=== PATIENT | male | born 1960 | race Hispanic/Latino ===

== ENCOUNTER → 2023-03-12 | Outpatient (CLI) | payer BC ==
[~2023-03-12] MED LIST: IOHEXOL 350 MG/ML 100ML INFUS..BTL IV ONE
== END | disposition home or self-care (01) ==
LOC: RAH 08:10
PROVIDERS: ATTEND Internal Medicine Cardiovascular Disease
DX: I71.40 Abdominal aortic aneurysm, without rupture, unspecified (principal); I71.019 Dissection of thoracic aorta, unspecified
CPT/HCPCS: 74174; Q9967

== ENCOUNTER → 2024-12-31 | Outpatient (CLI) | payer OTHER ==
--- NOTE | 2024-12-31 12:28 | HMCIMG ---
CT ANGIO CHEST/ABD/PELVIS REASON: Dissection of thoracic aorta, unspecified COMPARISON: 03/12/2023 TECHNIQUE: Axial images are obtained from thoracic inlet through the symphysis pubis before and during bolus IV contrast infusion. 2-D and 3-D multiplanar reconstruction images were performed. Contrast volume was 100 cc Omnipaque 350. FINDINGS: There is a stent graft in the descending thoracic aorta. The descending aorta just distal to the stent graft is dilated at 5.3 x 4.4 cm. There is a dissection flap which begins just below the stent graft, false lumen is initially thrombosed, the false lumen becomes patent at the level of the diaphragmatic hiatus. The dissection flap is visible extending into the common iliac artery. Both true and false lumens are widely patent to this level. Celiac and superior mesenteric artery origins are from the true lumen as are the renal artery origins. The extent of the dissection is unchanged compared to previous exam. 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 The descending aorta reaches normal caliber bilateral diaphragmatic hiatus. Lung bases are clear. There are no focal masses or infiltrates. There are no pleural effusions. There is mild cardiomegaly without vascular congestion. There is no hilar or mediastinal lymphadenopathy. There are no focal liver lesions. Spleen, kidneys, pancreas and gallbladder appear normal. Bowel loops appear unremarkable. There is no free air or fluid. There are no focal fluid collections. Pelvic soft tissues appear normal. The anterior abdominal wall is intact. Bones appear unremarkable. IMPRESSION: 1. Aortic stent graft in the proximal and mid descending aorta, unchanged. 2. 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 3. The dissection flap is visible to the level of the right distal common iliac artery, overall appearance and size of the aorta are unchanged compared to prior exam. 4. No acute finding in the chest, abdomen and pelvis.
== END | disposition home or self-care (01) ==
LOC: RAH 09:55
PROVIDERS: ATTEND Internal Medicine Cardiovascular Disease
DX: I71.23 Aneurysm of the descending thoracic aorta, without rupture (principal); I51.7 Cardiomegaly; I71.019 Dissection of thoracic aorta, unspecified
CPT/HCPCS: 74174; 71275; Q9967

== ENCOUNTER → 2025-03-04 | Outpatient (CLI) | payer OTHER ==
[~2025-03-04] MED LIST changes: +AMLO-257 PO; +ASPI-1443 PO; +CARV25TA PO; +DAPA5TAB PO; +FLUT16H NS; -IOHEXOL 350 MG/ML 100ML INFUS..BTL IV ONE; +LOSA50TA64 PO
[2025-03-04 12:19] LABS: BASOPHILS # (AUTO) 0.07 K/uL (0.00-0.20); EOSINOPHILS # (AUTO) 0.11 K/uL (0.00-0.70); EOSINOPHILS % (AUTO) 1.6 % (0.0-8.0); HEMATOCRIT 45.8 % (42-54); IMMATURE GRANULOCYTE ABSOLUTE 0.01 K/uL (0-1); LYMPHOCYTES # (AUTO) 1.3 K/uL (1.0-4.8); LYMPHOCYTES % (AUTO) 19.8 % (21.0-51.0); MEAN CORPUSCULAR HEMOGLOBIN 30.4 pg (27.0-33.0); MEAN CORPUSCULAR HGB CONC 32.8 g/dL (32.0-36.0); MEAN CORPUSCULAR VOLUME 92.9 fL (79-99); MONOCYTES # (AUTO) 0.6 K/uL (0.1-1.0); MONOCYTES % (AUTO) 9.1 % (3.0-13.0); NEUTROPHILS # (AUTO) 4.6 K/uL (1.8-7.7); NEUTROPHILS % (AUTO) 68.4 % (40.0-77.0); PLATELET COUNT (AUTO) 211 K/uL (130-400); RED BLOOD CELL COUNT(AUTO) 4.93 MIL/uL (4.50-6.20); RED CELL DISTRIBUTION WIDTH 13.1 % (11.0-15.5); WHITE BLOOD COUNT (AUTO) 6.7 K/uL (4.8-10.8)
[2025-03-04 12:27] LABS: HEMOGLOBIN A1C 5.8 % (4.0-6.0)
[2025-03-04 12:37] LABS: BILIRUBIN,TOTAL 0.5 mg/dL (0.2-1.0); CREATININE 1.3 mg/dL (0.5-1.3); POTASSIUM 4.2 mmol/L (3.5-5.1); TOTAL PROTEIN, SERUM 7.6 g/dL (6.0-8.3)
== END | disposition home or self-care (01) ==
LOC: LAB 08:33
PROVIDERS: ATTEND Nurse Practitioner Acute Care
DX: I10 Essential (primary) hypertension (principal); I71.019 Dissection of thoracic aorta, unspecified; R73.03 Prediabetes
CPT/HCPCS: 36415; 80053; 80061; 83036; 85025